=== PATIENT | female | born 1975 | race American Indian/Alaskan Native ===

== ENCOUNTER 2016-06-21 23:21 | Emergency (ER) | payer MEDICAID ==
[2016-06-21 23:41] VITALS: BMI 23.8
[2016-06-21] MEDS ORDERED: Sodium Chloride 0.9% 1,000 ML IV SCH (23:45)
--- NOTE | 2016-06-21 23:55 | ED PDOC ---
Arrival/HPI - General Chief Complaint: Abdominal Pain Time Seen by Provider: 06/21/16 23:51 Historian: Patient - History of Present Illness Narrative History of Present Illness (Text): 06/21/16 23:55 Radha Hernandez is a 41 year old female, whose past medical history includes ovarian cysts, who presents to the Emergency department complaining sharp lower abdominal pressure radiating to her back today. Patient also complaining of chest pain and constipation. Patient notes her last bowel movement earlier today was 1 hard, small piece. Patient states she took Pepto Bismol and laxatives but denies any relief. Patient denies any fever, chills, shortness of breath, nausea, vomiting, diarrhea, urinary symptoms, neck pain, headache, dizziness, or any other complaints. Time/Duration: Other (today) Symptom Onset: Gradual Symptom Course: Unchanged Quality: Pressure Activities at Onset: Rest, Light Context: Home Past Medical History - Provider Review Nursing Documentation Reviewed: Yes - Cardiac Hx Hypertension: Yes - Pulmonary Hx Respiratory Disorders: No - Neurological Hx Neurological Disorder: No - HEENT Hx HEENT Disorder: No - Renal Hx Renal Disorder: No - Endocrine/Metabolic Hx Endocrine Disorders: No - Hematological/Oncological Hx Anemia: Yes - Integumentary Hx Dermatological Disorder: No - Musculoskeletal/Rheumatological Hx Musculoskeletal Disorders: No - Gastrointestinal Hx Gastrointestinal Disorders: No - Genitourinary/Gynecological Hx Genitourinary Disorders: No - Psychiatric Hx Psychophysiologic Disorder: No Hx Substance Use: No - Surgical History Other/Comment: ECTOPIC PREG right - Anesthesia Hx Anesthesia: No - Suicidal Assessment Feels Threatened In Home Enviroment: No Family/Social History - Physician Review Nursing Documentation Reviewed: Yes Family/Social History: No Known Family HX Smoking Status: Never Smoked Hx Alcohol Use: Yes Hx Substance Use: No Allergies/Home Meds Allergies/Adverse Reactions: Allergies No Known Allergies Allergy (Verified 06/21/16 23:44) Review of Systems - Physician Review All systems were reviewed & negative as marked: Yes - Review of Systems Constitutional: Normal. absent: Fevers Eyes: Normal ENT: Normal Respiratory: Normal. absent: SOB, Cough Cardiovascular: Chest Pain Gastrointestinal: Abdominal Pain, Constipation. absent: Nausea, Vomiting Genitourinary Female: Normal. absent: Dysuria, Frequency, Hematuria, Urine Output Changes Musculoskeletal: Normal. absent: Back Pain Skin: Normal. absent: Rash Neurological: Normal. absent: Headache, Dizziness Endocrine: Normal Hemo/Lymphatic: Normal Psychiatric: Normal Physical Exam Vital Signs Reviewed: Yes Vital Signs Temp Pulse Resp BP Pulse Ox 06/22/16 04:31 88 16 123/68 99 06/22/16 03:59 97.8 F 65 17 110/61 98 06/21/16 23:51 98.4 F 89 17 116/71 100 Temperature: Afebrile Blood Pressure: Normal Pulse: Regular Respiratory Rate: Normal Appearance: Positive for: Well-Appearing, Non-Toxic, Comfortable Pain Distress: None Mental Status: Positive for: Alert and Oriented X 3 - Systems Exam Head: Present: Atraumatic, Normocephalic Pupils: Present: PERRL Extroacular Muscles: Present: EOMI Conjunctiva: Present: Normal Mouth: Present: Moist Mucous Membranes Neck: Present: Normal Range of Motion Respiratory/Chest: Present: Clear to Auscultation, Good Air Exchange. No: Respiratory Distress, Accessory Muscle Use Cardiovascular: Present: Regular Rate and Rhythm, Normal S1, S2. No: Murmurs Abdomen: Present: Tenderness (RLQ tenderness), Normal Bowel Sounds. No: Distention, Peritoneal Signs Back: Present: Normal Inspection Upper Extremity: Present: Normal Inspection. No: Cyanosis, Edema Lower Extremity: Present: Normal Inspection. No: Edema Neurological: Present: GCS=15, CN II-XII Intact, Speech Normal Skin: Present: Warm, Dry, Normal Color. No: Rashes Psychiatric: Present: Alert, Oriented x 3, Normal Insight, Normal Concentration Medical Decision Making ED Course and Treatment: 06/21/16 23:55 Impression: 41 year old female complaining of lower abdominal pressure today with chest pain and constipation. Plan: -- EKG -- Transvaginal US -- Labs, amylase, lipase, cardiac enzymes -- UA -- IV fluids -- Morphine -- Reassess and disposition Prior Visits: Notes and results from previous visits were reviewed. On 02/08/2016, pt was seen in the Emergency department for generalized weakness , nausea, and multiple episodes of bilious vomiting. Pt was d/c home. Progress Notes: Reviewed EKG, NSR at [address]-segment elevations or depressions, no T-wave inversions, normal intervals. 06/22/16 01:24 Reviewed sono, Transvaginal US shows: Right ovarian cysts for which followup is recommended. 06/22/16 03:51 Reviewed radiology, CT Abdomen and Pelvis shows: Right ovarian cyst better seen on ultrasound. 06/22/16 04:30 On re-evaluation, the patient feels better and is in no acute distress. I have discussed the results and plan with the patient, who expresses understanding. Patient in agreement with plan to discharged home. Patient is stable for discharge. Patient was instructed to follow up with physician/clinic in 1-2 days or return if symptoms worsen or new concerning symptoms arise. - Lab Interpretations Lab Results: 06/22/16 00:10 06/22/16 00:10 Lab Results 06/22/16 00:34: Urine HCG, Qual Negative 06/22/16 00:10: WBC 6.9 D, RBC 4.15, Hgb 11.5 L, Hct 34.8 L, MCV 83.9, MCH 27.7 , MCHC 33.0, RDW 14.1, Plt Count 232, MPV 9.9, Gran % 59.1, Lymph % (Auto) 30.1 , [place] % (Auto) 9.8 H, Eos % (Auto) 0.7 L, Baso % (Auto) 0.3, Gran # 4.08, Lymph # 2.1, [place] # 0.7 H, Eos # 0.1, Baso # 0.02, PT 11.0, INR 1.02, APTT 25.7 , Sodium 136, Potassium 3.8, Chloride 98, Carbon Dioxide 31, Anion Gap 11, BUN 15, Creatinine 0.9, Est GFR ( Amer) > 60, Est GFR (Non-Af Amer) > 60, Random Glucose 97, Calcium 9.2, Total Bilirubin 0.3, AST 23, ALT 15, Alkaline Phosphatase 50, Lactate Dehydrogenase 448, Total Creatine Kinase 106, Troponin I < 0.01, Total Protein 7.6, Albumin 3.8, Globulin 3.8, Albumin/Globulin Ratio 1.0 L, Amylase 90, Lipase 126, Urine Color Yellow, Urine Appearance Clear, Urine pH 6.5, Ur Specific [place] 1.010, Urine Protein Negative, Urine Glucose ( UA) Negative, Urine Ketones Negative, Urine Blood Negative, Urine Nitrate Negative, Urine Bilirubin Negative, Urine Urobilinogen 0.2, Ur Leukocyte Esterase Negative I have reviewed the lab results: Yes - RAD Interpretation Narrative RAD Interpretations (Text): Transvaginal US shows: The uterus is normal and measures 7 x 4 x 5 cm. There is a 2 cm posterior uterine fibroid. The endometrium measures 4 mm. The left ovary is normal. There are 2 right ovarian cysts each measuring approximately 1.5 cm in diameter and both with suggestion of a few small internal septations. Color flow and doppler vascular waveforms were demonstrated to both ovaries. There is no significant free fluid. IMPRESSION: Right ovarian cysts for which followup is recommended. CT Abdomen and Pelvis shows: There is bibasilar atelectasis. The liver, spleen, gallbladder and pancreas appear grossly normal on this non- contrast study. No perinephric stranding. No hydronephrosis. No obstructing calculi. The bowel appears grossly normal. A normal appendix is identified axial images 113 through 123 coronal images 38 through 43. There is a small amount of fluid in the anterior right pelvis versus representing unopacified bowel. Right ovarian cyst better seen on ultrasound. The uterus appears grossly normal. Pelvic phleboliths. IMPRESSION: Right ovarian cyst better seen on ultrasound. Radiology Orders: 06/21/16 23:56 TRANSVAGINAL [US] Stat 06/22/16 02:32 ABD & PELVIS W/O PO OR IV CONT [CT] Stat Noc Analyst: Radiologist - EKG Interpretation EKG Interpretation (Text): EKG: Ordered, reviewed, and independently interpreted the EKG. Rate : 73 BPM Rhythm : NSR Interpretation : No ST-segment elevations or depressions, no T-wave inversions, normal intervals. Interpreted by ED Physician: Yes Type: 12 lead EKG - Medication Orders Current Medication Orders: Sodium Chloride (Sodium Chloride 0.9%) 1,000 mls @ 80 mls/hr IV .[id number] [facility] Last Admin: 06/22/16 00:17 Dose: 80 MLS/HR eMAR Start Stop Document 06/22/16 00:17 EKEOO (Rec: 06/22/16 00:18 EKEOO [id number] ATTEND) Intravenous Solution Start Date 06/22/16 Start Time 00:18 Discontinued Medications Hydromorphone HCl (Dilaudid) 1 mg IVP STAT STA Stop: 06/22/16 03:29 Last Admin: 06/22/16 03:44 Dose: 1 MG IVP Administration Document 06/22/16 03:44 EKEOO (Rec: 06/22/16 03:44 EKEOO [id number]) Charges for Administration # of IVP Administrations 1 Morphine Sulfate (Morphine) 2 mg IVP STAT STA Stop: 06/21/16 23:58 Last Admin: 06/22/16 00:18 Dose: 2 MG MAR Pain Assessment Document 06/22/16 00:18 EKEOO (Rec: 06/22/16 00:18 EKEOO [id number]) Pain Reassessment Is this a pain reassessment? No Sleep Is patient sleeping during reassessment? No Presence of Pain Presence of Pain Yes IVP Administration Document 06/22/16 00:18 EKEOO (Rec: 06/22/16 00:18 EKEOO [id number] ATTEND) Charges for Administration # of IVP Administrations 1 - Scribe Statement The provider has reviewed the documentation as recorded by the Scribe Radha Chavez Provider Attestation: All medical record entries made by the Scribe were at my direction and personally dictated by me. I have reviewed the chart and agree that the record accurately reflects my personal performance of the history, physical exam, medical decision making, and the department course for this patient. I have also personally directed, reviewed, and agree with the discharge instructions and disposition. Disposition/Present on Arrival - Present on Arrival History of DVT/PE: No History of Uncontrolled Diabetes: No Urinary Catheter: No History of Decub. Ulcer: No History Surgical Site Infection Following: None - Disposition Diagnosis: Abdominal pain Disposition: HOME/ ROUTINE Patient Problems: Current Active Problems Problem Status Diagnosed Abdominal pain Acute Discharge Instructions (ExitCare): Acute Abdominal Pain (ED) Additional Instructions: follow up with your ob/gyn Prescriptions: Ibuprofen/Oxycodone HCl [Oxycodone-Ibuprofen 5-400 Tab] 1 each PO QID #10 tablet Forms: WORK NOTE
[2016-06-21] MEDS ORDERED: Morphine 2 mg/ml ISec IVP STA (23:57)
[2016-06-22 00:23] LABS: ADD MANUAL DIFF? NO
[2016-06-22 00:29] LABS: PH,URINE 6.5 (4.7-8.0); URINE BILIRUBIN NEGATIVE (NEGATIVE); URINE BLOOD NEGATIVE (NEGATIVE); URINE GLUCOSE (UA) NEGATIVE (NEGATIVE); URINE KETONE NEGATIVE (NEGATIVE); URINE LEUKOCYTE ESTERASE NEGATIVE Leu/uL (NEGATIVE); URINE PROTEIN NEGATIVE mg/dL (<30 mg/dL); URINE UROBILINOGEN 0.2 E.U./dL (<1 E.U./dL)
[2016-06-22 00:30] LABS: BASO # 0.02 K/mm3 (0.0-2.0); BASO % 0.3 % (0.0-3.0); EOS # 0.1 (0.0-0.7); EOS % 0.7 % (1.5-5.0); GRAN # 4.08 (1.4-6.5); GRAN % 59.1 % (50.0-68.0); HEMATOCRIT 34.8 % (36.0-48.0); LYMPH # 2.1 (1.2-3.4); LYMPH % 30.1 % (22.0-35.0); MEAN CELL VOLUME 83.9 fL (80.0-105.0); MEAN CORPUSCULAR HEMOGLOBIN 27.7 pg (25.0-35.0); MEAN PLATELET VOLUME 9.9 fl (7.0-11.0); MONO # 0.7 (0.1-0.6); MONO % 9.8 % (1.0-6.0); PLATELET COUNT 232 10^3/uL (120.0-450.0); RED CELL DISTRIBUTION WIDTH 14.1 % (11.5-14.5); WHITE BLOOD COUNT 6.9 10^3/ul (4.5-11.0)
[2016-06-22 00:35] LABS: URINE APPEARANCE CLEAR (CLEAR); URINE COLOR YELLOW (YELLOW)
[2016-06-22 00:41] LABS: INR 1.02 (0.93-1.08); PARTIAL THROMBOPLASTIN TIME 25.7 Seconds (23.7-30.8)
[2016-06-22 00:43] LABS: ALKALINE PHOSPHATASE 50 U/L (38-133); ALT/SGPT 15 U/L (7-56); AMYLASE 90 U/L (35-125); AST/SGOT 23 U/L (15-39); BILIRUBIN,TOTAL 0.3 mg/dL (0.2-1.3); BLOOD UREA NITROGEN 15 mg/dL (7-21); CALCIUM 9.2 mg/dL (8.4-10.5); CARBON DIOXIDE 31 mmol/L (21-33); CHLORIDE 98 mmol/L (98-107); GFR AFRICAN-AMERICAN > 60; GLUCOSE,RANDOM 97 mg/dL (70-110); LIPASE 126 U/L (23-300); POTASSIUM 3.8 mmol/L (3.6-5.0); SODIUM 136 mmol/L (132-148); TOTAL PROTEIN 7.6 g/dL (5.8-8.3)
[2016-06-22 01:02] LABS: TROPONIN I < 0.01 ng/mL
--- NOTE | 2016-06-22 01:11 | US ---
EXAM: US Pelvis, Transvaginal. CLINICAL HISTORY: 41 years old, female; Pain; Pelvic pain; Additional info: Rlq pain TECHNIQUE: Real-time transvaginal pelvic ultrasound (complete) with image documentation. Transvaginal imaging was used for better evaluation of the endometrium and adnexa. EXAM DATE/TIME: 06/21/2016 11:56 PM COMPARISON: No relevant prior studies available. FINDINGS: The uterus is normal and measures 7 x 4 x 5 cm. There is a 2 cm posterior uterine fibroid. The endometrium measures 4 mm. The left ovary is normal. There are 2 right ovarian cysts each measuring approximately 1.5 cm in diameter and both with suggestion of a few small internal septations. Color flow and doppler vascular waveforms were demonstrated to both ovaries. There is no significant free fluid. IMPRESSION: Right ovarian cysts for which followup is recommended.
[2016-06-22] MEDS ORDERED: HYDROmorphone 1 mg/ml ISec IVP STA (03:28)
--- NOTE | 2016-06-22 03:50 | CT ---
EXAM: CT Abdomen and Pelvis Without Intravenous Contrast. CLINICAL HISTORY: 41 years old, female; Pain; Abdominal pain; Generalized; Additional info: Abd pain TECHNIQUE: Axial computed tomography images of the abdomen and pelvis without intravenous contrast. This CT exam was performed using one or more of the following dose reduction techniques: automated exposure control, adjustment of the mA and/or kV according to patient size, and/or use of iterative reconstruction technique. Coronal and sagittal reformatted images were created and reviewed. EXAM DATE/TIME: 06/22/2016 2:32 AM COMPARISON: US - TRANSVAGINAL 06/22/2016 12:36:51 AM FINDINGS: There is bibasilar atelectasis. The liver, spleen, gallbladder and pancreas appear grossly normal on this non-contrast study. No perinephric stranding. No hydronephrosis. No obstructing calculi. The bowel appears grossly normal. A normal appendix is identified axial images 113 through 123 coronal images 38 through 43. There is a small amount of fluid in the anterior right pelvis versus representing unopacified bowel. Right ovarian cyst better seen on ultrasound. The uterus appears grossly normal. Pelvic phleboliths. IMPRESSION: Right ovarian cyst better seen on ultrasound.
[2016-06-22 04:01] VITALS: TEMP 97.8
[2016-06-22 04:32] VITALS: BP 123/68; PULSE 88; RESP 16; O2SAT 99
--- NOTE | 2016-06-22 10:06 | CARD ---
APPROVED REPORT EKG Measurement Heart [id number] <Conclusion> Normal sinus rhythm Normal ECG No change
== END 2016-06-22 04:30 | disposition home or self-care (01) ==
LOC: ED 23:21
DX: R10.9 Unspecified abdominal pain (principal); I10 Essential (primary) hypertension
CPT/HCPCS: 74176; 76830; 80053; 81003; 82150; 82550; 83615; 83690; 84484; 84703; 85025; 85610; 85730; 93005; 96374; 96375; 99283; J1170; J2270; J7040

== ENCOUNTER 2016-06-22 19:13 | Observation (INO) | payer MEDICAID ==
[2016-06-22 19:14] VITALS: BMI 23.8
[2016-06-22] MEDS ORDERED: Sodium Chloride 0.9% 1,000 ML IV STA (20:09)
[2016-06-22] MEDS ORDERED: Morphine 4 mg/ml ISec IVP STA ×2 (20:09→22:35)
--- NOTE | 2016-06-22 20:15 | ED PDOC ---
Arrival/HPI - General Chief Complaint: Abdominal Pain Time Seen by Provider: 06/22/16 19:46 Historian: Patient - History of Present Illness Narrative History of Present Illness (Text): 06/22/16 20:15 A 41 year old female presents to the emergency department complaining of lower abdominal pain for the past few days. Patient notes radiating pain to her back, right side worse than left. Patient reports she was seen in the emergency room last night for same complaint. Patient had a CT and US, which showed ovarian cysts. Patient was discharged home with Motrin and Oxycodone. Patient states she was unable to her the prescriptions filled because her pharmacy did not have the medication. Patient states her pain has worsened since causing her to come in for further evaluation. Patient notes 1 episode of non-bilious non- bloody vomiting this morning and states her last bowel movement was 2 days ago. Patient denies any fever, urinary symptoms, vaginal bleeding, chest pain , shortness of breath or any other complaints. PMD: Dr. Hall Time/Duration: Other (few days) Symptom Course: Worsening Quality: Other Context: Other Past Medical History - Provider Review Nursing Documentation Reviewed: Yes - Infectious Disease Hx of Infectious Diseases: None - Reproductive Menopause: No - Cardiac Hx Hypertension: Yes - Pulmonary Hx Respiratory Disorders: No - Neurological Hx Neurological Disorder: No - HEENT Hx HEENT Disorder: No - Renal Hx Renal Disorder: No - Endocrine/Metabolic Hx Endocrine Disorders: No - Hematological/Oncological Hx Anemia: Yes - Integumentary Hx Dermatological Disorder: No - Musculoskeletal/Rheumatological Hx Musculoskeletal Disorders: No - Gastrointestinal Hx Gastrointestinal Disorders: No - Genitourinary/Gynecological Hx Genitourinary Disorders: No - Psychiatric Hx Psychophysiologic Disorder: No Hx Substance Use: No - Surgical History Other/Comment: ECTOPIC PREG right - Anesthesia Hx Anesthesia: No - Suicidal Assessment Feels Threatened In Home Enviroment: No Family/Social History - Physician Review Nursing Documentation Reviewed: Yes Family/Social History: No Known Family HX Smoking Status: Never Smoked Hx Alcohol Use: Yes Hx Substance Use: No Allergies/Home Meds Allergies/Adverse Reactions: Allergies No Known Allergies Allergy (Verified 06/22/16 19:38) Review of Systems - Physician Review All systems were reviewed & negative as marked: Yes - Review of Systems Constitutional: absent: Fevers Respiratory: absent: SOB Cardiovascular: absent: Chest Pain Gastrointestinal: Abdominal Pain (Lower abdominal pain radiating to back), Constipation, Vomiting Genitourinary Female: absent: Dysuria, Frequency, Hematuria, Urine Output Changes, Vaginal Bleeding Physical Exam Vital Signs Reviewed: Yes Vital Signs Temp Pulse Resp BP Pulse Ox 06/23/16 03:27 97.7 F 65 17 112/61 99 06/23/16 02:55 97.8 F 73 17 109/71 99 06/22/16 19:34 98 F 90 18 111/74 96 Temperature: Afebrile Blood Pressure: Normal Pulse: Regular Respiratory Rate: Normal Appearance: Positive for: Well-Appearing, Non-Toxic, Comfortable Pain Distress: None Mental Status: Positive for: Alert and Oriented X 3 - Systems Exam Head: Present: Atraumatic, Normocephalic Pupils: Present: PERRL Extroacular Muscles: Present: EOMI Conjunctiva: Present: Normal Mouth: Present: Moist Mucous Membranes Neck: Present: Normal Range of Motion Respiratory/Chest: Present: Clear to Auscultation, Good Air Exchange. No: Respiratory Distress, Accessory Muscle Use Cardiovascular: Present: Regular Rate and Rhythm, Normal S1, S2. No: Murmurs Abdomen: Present: Tenderness (Lower abdominal tendenress), Normal Bowel Sounds, Guarding (Mild guarding). No: Distention, Peritoneal Signs, Rebound Back: Present: Normal Inspection Upper Extremity: Present: Normal Inspection. No: Cyanosis, Edema Lower Extremity: Present: Normal Inspection. No: Edema Neurological: Present: GCS=15, CN II-XII Intact, Speech Normal Skin: Present: Warm, Dry, Normal Color. No: Rashes Psychiatric: Present: Alert, Oriented x 3, Normal Insight, Normal Concentration Medical Decision Making ED Course and Treatment: 06/22/16 20:15 Impression: A 41 year old female with worsening lower abdominal pain radiating to back. Patient notes her last bowel movement was 2 days ago. Differential Diagnosis included but are not limited to: Lower abdominal pain due to ovarian cyst and constipation Plan: -- Labs -- Morphine, IV fluids and Toradol -- Reassess and disposition - Lab Interpretations I have reviewed the lab results: Yes - RAD Interpretation Narrative RAD Interpretations (Text): EXAM: CT Abdomen and Pelvis With Intravenous Contrast. FINDINGS: Lower thorax: Mild patchy groundglass opacities within lower lobes. ABDOMEN: Liver: Unremarkable. No mass. Gallbladder and bile ducts: No calcified stones. No ductal dilation. Pancreas: No ductal dilation. No mass. Spleen: No splenomegaly. Adrenals: No mass. Kidneys and ureters: Too small to characterize lesion within LEFT kidney. No hydronephrosis. Stomach and bowel: No definite mural thickening. No obstruction. Appendix: Normal caliber. No inflammation. PELVIS: Bladder: Unremarkable. Reproductive: 2.0 x 1.4 x 1.4 cm peripherally enhancing hypodensity with crenulated margins within RIGHT ovary. 1.5 x 1.5 x 1.6 cm peripherally enhancing hypodensity with crenulated margins within RIGHT ovary. ABDOMEN and PELVIS: Intraperitoneal space: Trace free fluid within pelvis. No free air. Bones/joints: No acute fracture. Soft tissues: Unremarkable. Vasculature: Unremarkable. No abdominal aortic aneurysm. Lymph nodes: No pathologically enlarged lymph nodes. IMPRESSION: 1. Involuting or ruptured RIGHT ovarian cysts. 2. Groundglass opacities, nonspecific. Clinical correlation is needed. 3. Incidental/non-acute findings are described above. It Software Developer: Radiologist - Medication Orders Current Medication Orders: Discontinued Medications Sodium Chloride (Sodium Chloride 0.9%) 1,000 mls @ 1,000 mls/hr IV .Q1H STA Stop: 06/22/16 21:08 Last Admin: 06/22/16 20:31 Dose: 1,000 MLS/HR eMAR Start Stop Document 06/22/16 20:31 RD (Rec: 06/22/16 20:31 [email or web address] Intravenous Solution Start Date 06/22/16 Start Time 20:31 End Date 06/22/16 End time 21:31 Total Infusion Time 60 Ketorolac Tromethamine (Toradol) 30 mg IVP STAT STA Stop: 06/22/16 20:10 Last Admin: 06/22/16 20:31 Dose: 30 MG IVP Administration Document 06/22/16 20:31 RD (Rec: 06/22/16 20:31 RD [email or web address]) Charges for Administration # of IVP Administrations 1 Magnesium Citrate (Citrate Of Mag) 300 ml PO ONCE ONE Stop: 06/22/16 21:32 Last Admin: 06/22/16 21:48 Dose: 300 ML Morphine Sulfate (Morphine) 4 mg IVP STAT STA Stop: 06/22/16 20:10 Last Admin: 06/22/16 20:33 Dose: Not Given Non-Admin Reason: Patient Refused Morphine Sulfate (Morphine) 4 mg IVP STAT STA Stop: 06/22/16 22:36 Last Admin: 06/22/16 22:50 Dose: 4 MG MAR Pain Assessment Document 06/22/16 22:50 JMR (Rec: 06/23/16 01:28 [facility]) Pain Reassessment Is this a pain reassessment? Yes Sleep Is patient sleeping during reassessment? No Presence of Pain Presence of Pain Yes Pain Scale Used Pain Scale Used Numeric Location Pain Location Body Site Abdomen Description Description Sharp Intensity of Pain at present 9 Acceptable Level of Pain 0 IVP Administration Document 06/22/16 22:50 JMR (Rec: 06/23/16 01:28 [facility]) Charges for Administration # of IVP Administrations 1 Morphine Sulfate (Morphine) 4 mg IVP STAT STA Stop: 06/23/16 01:25 Last Admin: 06/23/16 01:33 Dose: 4 MG MAR Pain Assessment Document 06/23/16 01:33 RD (Rec: 06/23/16 01:34 RD [id number]) Pain Reassessment Is this a pain reassessment? No Sleep Is patient sleeping during reassessment? No Presence of Pain Presence of Pain Yes IVP Administration Document 06/23/16 01:33 RD (Rec: 06/23/16 01:34 RD [id number]) Charges for Administration # of IVP Administrations 1 ED OBSERVATION Date of observation admission: 06/22/16 Time of observation admission: 20:09 - Observation admission statement Patient is being placed in observation because:: Abdominal pain - Goals of Observation Goals of observation are:: Monitor and treat symptoms - Progress Note Progress Note: 06/22/16 20:09 Patient with abdominal pain. Will order labs, medication and re-evaluate after treatment. 06/22/16 21:32 Patient no longer has pain but feels constipated. Will give Magnesium Citrate and reevaluate. 06/22/16 22:34 Patient continues to have abdominal pain. Morphine IV ordered and she agreed to take it this time because initially she refused it. Abd soft and diffusely tender with guarding, more so lower. No rebound. Previous CT was without PO and IV contrast. Will repeat imaging with PO and IV contrast. 06/23/16 03:19 CT abdomen pelvis reviewed: IMPRESSION: 1. Involuting or ruptured RIGHT ovarian cysts. 2. Groundglass opacities, nonspecific. Clinical correlation is needed. On reevaluation, patient states that she feels much better post treatment and wants to be discharged home. CT scan reviewed which show possible involuting or ruptured right ovarian cyst. Patient is stable for discharge. Advised to present back to ed if symptoms worsen and follow up with PMD within few days. - Scribe Statement The provider has reviewed the documentation as recorded by the Ollieibdari Espinosa Provider Scribe Attestation: All medical record entries made by the Scribe were at my direction and personally dictated by me. I have reviewed the chart and agree that the record accurately reflects my personal performance of the history, physical exam, medical decision making, and the department course for this patient. I have also personally directed, reviewed, and agree with the discharge instructions and disposition. Disposition/Present on Arrival - Present on Arrival Any Indicators Present on Arrival: No History of DVT/PE: No History of Uncontrolled Diabetes: No Urinary Catheter: No History of Decub. Ulcer: No History Surgical Site Infection Following: None - Disposition Have Diagnosis and Disposition been Completed?: Yes Diagnosis: Ruptured ovarian cyst, Abdominal pain Disposition: HOME/ ROUTINE Disposition Time: 03:30 Patient Plan: Discharge Patient Problems: Current Active Problems Problem Status Diagnosed Abdominal pain Acute Ruptured ovarian cyst Acute Condition: IMPROVED
[2016-06-22 20:37] LABS: ADD MANUAL DIFF? NO
[2016-06-22 20:39] LABS: BASO # 0.01 K/mm3 (0.0-2.0); BASO % 0.2 % (0.0-3.0); EOS % 0.6 % (1.5-5.0); GRAN # 3.64 (1.4-6.5); GRAN % 56.7 % (50.0-68.0); LYMPH # 2.2 (1.2-3.4); LYMPH % 33.5 % (22.0-35.0); MEAN CELL VOLUME 84.2 fL (80.0-105.0); MEAN CORPUSCULAR HEMOGLOBIN 27.7 pg (25.0-35.0); MEAN CORPUSCULAR HGB CONC 32.9 g/dl (31.0-37.0); MONO # 0.6 (0.1-0.6); PLATELET COUNT 226 10^3/uL (120.0-450.0); WHITE BLOOD COUNT 6.4 10^3/ul (4.5-11.0)
[2016-06-22 21:24] LABS: ALB/GLOB RATIO 1.1 (1.1-1.8); ALKALINE PHOSPHATASE 43 U/L (38-133); ALT/SGPT 15 U/L (7-56); AST/SGOT 20 U/L (15-39); BILIRUBIN,TOTAL 0.2 mg/dL (0.2-1.3); BLOOD UREA NITROGEN 16 mg/dL (7-21); CALCIUM 8.6 mg/dL (8.4-10.5); CARBON DIOXIDE 29 mmol/L (21-33); CHLORIDE 102 mmol/L (98-107); GFR AFRICAN-AMERICAN > 60; GLUCOSE,RANDOM 92 mg/dL (70-110); POTASSIUM 3.6 mmol/L (3.6-5.0); SODIUM 137 mmol/L (132-148); TOTAL PROTEIN 6.7 g/dL (5.8-8.3)
[2016-06-22] MEDS ORDERED: Magnesium Citrate Oral SOL (300 ml) PO ONE (21:31)
[2016-06-22] MEDS ORDERED: Iohexol 240 (50 ml) ONE (22:43)
[2016-06-23] MEDS ORDERED: Morphine 4 mg/ml ISec IVP STA (01:24)
[2016-06-23] MEDS ORDERED: Iohexol 350 MG/100 ML VIAL ONE (02:07)
[2016-06-23 02:56] VITALS: RESP 17; O2SAT 99
--- NOTE | 2016-06-23 02:57 | CT ---
EXAM: CT Abdomen and Pelvis With Intravenous Contrast. CLINICAL HISTORY: 41 years old, female; Pain; Abdominal pain; Generalized; Prior surgery; Surgery date: 6+ months; Additional info: Abd pain R/O appy R/O obstruction TECHNIQUE: Axial computed tomography images of the abdomen and pelvis with intravenous contrast. This CT exam was performed using one or more of the following dose reduction techniques: automated exposure control, adjustment of the mA and/or kV according to patient size, and/or use of iterative reconstruction technique. Coronal and sagittal reformatted images were created and reviewed. CONTRAST: 96 mL of OMNI 350 administered intravenously. COMPARISON: CT - ABD PELVIS W/O PO OR IV CONT 06/22/2016 3:09:54 AM FINDINGS: Lower thorax: Mild patchy groundglass opacities within lower lobes. ABDOMEN: Liver: Unremarkable. No mass. Gallbladder and bile ducts: No calcified stones. No ductal dilation. Pancreas: No ductal dilation. No mass. Spleen: No splenomegaly. Adrenals: No mass. Kidneys and ureters: Too small to characterize lesion within LEFT kidney. No hydronephrosis. Stomach and bowel: No definite mural thickening. No obstruction. Appendix: Normal caliber. No inflammation. PELVIS: Bladder: Unremarkable. Reproductive: 2.0 x 1.4 x 1.4 cm peripherally enhancing hypodensity with crenulated margins within RIGHT ovary. 1.5 x 1.5 x 1.6 cm peripherally enhancing hypodensity with crenulated margins within RIGHT ovary. ABDOMEN and PELVIS: Intraperitoneal space: Trace free fluid within pelvis. No free air. Bones/joints: No acute fracture. Soft tissues: Unremarkable. Vasculature: Unremarkable. No abdominal aortic aneurysm. Lymph nodes: No pathologically enlarged lymph nodes. IMPRESSION: 1. Involuting or ruptured RIGHT ovarian cysts. 2. Groundglass opacities, nonspecific. Clinical correlation is needed. 3. Incidental/non-acute findings are described above.
[2016-06-23 03:27] VITALS: BP 112/61; PULSE 65; TEMP 97.7
== END 2016-06-23 03:17 | disposition home or self-care (01) ==
LOC: ED 19:13 → EROBSV 20:09 → OBSVTOIN 22:15 → INTOOBSV 22:15 → EROBSV 23:09 → ERH 23:09
PROVIDERS: ADMIT Hospitalist; ATTEND Hospitalist
DX: R10.30 Lower abdominal pain, unspecified (principal); N83.201 Unspecified ovarian cyst, right side; I10 Essential (primary) hypertension
CPT/HCPCS: 74177; 80053; 85025; 96361; 96374; 96375; 96376; 99284; G0378; J1885; J2270; J7040; Q9966; Q9967

== ENCOUNTER 2016-09-29 01:18 | Emergency (ER) | payer MEDICAID ==
[2016-09-29 01:18] VITALS: BMI 23.8
[2016-09-29] MEDS ORDERED: Sodium Chloride 0.9% 1,000 ML IV STA (01:34)
[2016-09-29 01:43] VITALS: TEMP 98.2
--- NOTE | 2016-09-29 01:44 | ED PDOC ---
Arrival/HPI - General Chief Complaint: Abdominal Pain Time Seen by Provider: 09/29/16 01:27 Historian: Patient - History of Present Illness Narrative History of Present Illness (Text): 09/29/16 01:27 Radha Hernandez is a 41 year old female who presents to the emergency department complaining of epigastric abdominal pain tonight. Patient states that she took [id number] Motrin tablets, which she took for a headache, all at once at 22:00. States this is not the worst MOSS of her life, similar to previous. Patient says that she took the medication because she was sad, depressed, and wanted to go to sleep. Denies SI/HI. Patient denies any other complaints at this time. PMD: Dr. Hall Time/Duration: 1-3 hours Symptom Onset: Gradual Symptom Course: Unchanged Severity Level: Mild Activities at Onset: Rest Context: Home Past Medical History - Provider Review Nursing Documentation Reviewed: Yes - Infectious Disease Hx of Infectious Diseases: None - Cardiac Hx Hypertension: Yes - Pulmonary Hx Respiratory Disorders: No - Neurological Hx Neurological Disorder: No - HEENT Hx HEENT Disorder: No - Renal Hx Renal Disorder: No - Endocrine/Metabolic Hx Endocrine Disorders: No - Hematological/Oncological Hx Anemia: Yes - Integumentary Hx Dermatological Disorder: No - Musculoskeletal/Rheumatological Hx Musculoskeletal Disorders: No - Gastrointestinal Hx Gastrointestinal Disorders: No - Genitourinary/Gynecological Hx Genitourinary Disorders: No - Psychiatric Hx Psychophysiologic Disorder: No Hx Substance Use: No - Surgical History Other/Comment: ECTOPIC PREG right - Anesthesia Hx Anesthesia: No - Suicidal Assessment Feels Threatened In Home Enviroment: No Family/Social History - Physician Review Nursing Documentation Reviewed: Yes Family/Social History: No Known Family HX Smoking Status: Never Smoked Hx Alcohol Use: Yes Frequency of alcohol use: Socially Hx Substance Use: No Allergies/Home Meds Allergies/Adverse Reactions: Allergies No Known Allergies Allergy (Verified 06/22/16 19:38) Physical Exam - Physical Exam Narrative Physical Exam (Text): - Review of Systems Constitutional: Headache. absent: Fatigue, Weight Change, Fevers Eyes: Normal ENT: Normal Respiratory: Normal absent: SOB, Cough, Sputum Cardiovascular: Normal absent: Chest pain, Palpitations, Syncope Gastrointestinal: Epigastric abdominal pain. absent: Diarrhea, Nausea, Vomiting Genitourinary: Normal. absent: Dysuria, Frequency, Hematuria Musculoskeletal: Normal. absent: Arthralgias, Back Pain, Neck Pain Skin: Normal Neurological: Normal absent: Focal Weakness Endocrine: Normal Hemo/Lymphatic: Normal Psychiatric: Normal. No SI/HI. - Physical exam Patient appears age appropriate, speaking full sentences without difficulty. - Systems Exam Head: Present: Atraumatic, Normocephalic Pupils: Present: PERRL Extraocular Muscles: Present: EOMI Conjunctiva: Present: Normal Mouth: Present: Moist Mucous Membranes Neck: Present: Normal Range of Motion. No: MIDLINE TENDERNESS, Paraspinal Tenderness Respiratory/Chest: Present: Clear to Auscultation, Good Air Exchange. No: Respiratory Distress, Accessory Muscle Use, Tachypneic Cardiovascular: Present: Regular Rate and Rhythm, Normal S1, S2, Peripheral Pulses Present. No: Murmurs Abdomen: Present: Normal Bowel Sounds, No: Tenderness, Peritoneal Signs, Rebound, Guarding, Distention Back: Present: Normal Inspection. No: Midline Tenderness, Paraspinal Tenderness Upper Extremity: Present: Normal Inspection. No: Cyanosis, Edema Lower Extremity: Present: Normal Inspection. No: Edema Neurological: Present: GCS=15, Speech Normal, cranial nerves II through XII fully intact with no cerebellar abnormality, neuro-sensory fully intact. No focal neurological deficits. Skin: Present: Warm, Dry, Normal Color. No: Rashes Lymphatic: Present: OX3, NI, NC Psychiatric: Present: Alert, Oriented x 3, Normal Insight, Normal Concentration Vital Signs Reviewed: Yes Vital Signs Temp Pulse Resp BP Pulse Ox 09/29/16 04:25 64 18 141/66 98 09/29/16 01:41 98.2 F 64 18 143/92 H 99 09/29/16 01:34 98.0 F 64 16 143/92 H 99 Temperature: Afebrile Blood Pressure: Hypertensive Pulse: Regular Respiratory Rate: Normal Appearance: Positive for: Well-Appearing, Non-Toxic, Comfortable Pain Distress: None Mental Status: Positive for: Alert and Oriented X 3 Medical Decision Making ED Course and Treatment: 09/29/16 01:27 Impression: 41 year old female complaining of a headache for 2 days and a epigastric abdominal pain tonight after taking [id number] motrin tablets 3.5 hours ago. Non- enteric coated. No SI/HI. Plan: -- EKG -- Chest X-ray -- Urinalysis -- Labs -- Protonix and IV Fluids -- Reassess and disposition Prior Visits: Notes and results from previous visits were reviewed. Patient last seen in ED on 06/22/16 for lower abdominal pain for a few days. Patient was discharged home. Progress Notes: EKG shows Sinus Bradycardia at [address]-segment elevations, normal intervals. with no prior for comparison. Interpreted by me. 09/29/16 05:41 patient seen by PES, pt refusing to sign into . [facility] screeners. 09/29/16 07:[address] Diaz in stable condition, pending [facility] eval - Lab Interpretations Lab Results: 09/29/16 03:35 09/29/16 03:35 Lab Results 09/29/16 03:35: Alcohol, Quantitative < 10 09/29/16 03:35: Salicylates < 1 L, Acetaminophen < 10.0 L 09/29/16 03:35: Sodium 141, Potassium 3.6, Chloride 104, Carbon Dioxide 26, Anion Gap 15, BUN 14, Creatinine 0.9, Est GFR ( Amer) > 60, Est GFR (Non- Af Amer) > 60, Random Glucose 97, Calcium 9.6, Total Bilirubin 0.8, AST 30, ALT 31, Alkaline Phosphatase 64, Total Creatine Kinase 133, Total Protein 8.6 H, Albumin 4.5, Globulin 4.1, Albumin/Globulin Ratio 1.1 09/29/16 03:35: WBC 8.5 D, RBC 4.48, Hgb 12.6, Hct 38.0, MCV 84.8, MCH 28.1, MCHC 33.2, RDW 13.7, Plt Count 266, MPV 9.9, Gran % 59.3, Lymph % (Auto) 33.5, [place] % (Auto) 6.4 H, Eos % (Auto) 0.4 L, Baso % (Auto) 0.4, Gran # 5.03, Lymph # 2.8, [place] # 0.5, Eos # 0.0, Baso # 0.03 09/29/16 01:37: Urine Opiates Screen Negative, Urine Methadone Screen Negative, Ur Barbiturates Screen Negative, Ur Phencyclidine Scrn Negative, Ur Amphetamines Screen Negative, U Benzodiazepines Scrn Negative, U Oth Cocaine Metabols Negative, U Cannabinoids Screen Positive H 09/29/16 01:37: Urine Color Yellow, Urine Appearance Slight-cloudy, Urine pH 6.0 , Ur Specific [place] >= 1.030, Urine Protein Trace H, Urine Glucose (UA) Negative, Urine Ketones Trace H, Urine Blood Small H, Urine Nitrate Negative, Urine Bilirubin Negative, Urine Urobilinogen 0.2, Ur Leukocyte Esterase Negative , Urine RBC 2 - 5, Urine WBC 0 - 2, Ur Epithelial Cells 0 - 2, Urine Bacteria Mod I have reviewed the lab results: Yes - RAD Interpretation Radiology Orders: 09/29/16 01:33 CHEST PORTABLE [RAD] Stat - Medication Orders Current Medication Orders: Discontinued Medications Sodium Chloride (Sodium Chloride 0.9%) 1,000 mls @ 1,000 mls/hr IV .Q1H STA Stop: 09/29/16 02:33 Last Admin: 09/29/16 03:45 Dose: 1,000 mls/hr Pantoprazole Sodium (Protonix Inj) 40 mg IVP STAT STA Stop: 09/29/16 01:35 Last Admin: 09/29/16 03:45 Dose: 40 mg - Scribe Statement The provider has reviewed the documentation as recorded by the Ellie Garcia Provider Scribe Attestation: All medical record entries made by the Ollieibdari were at my direction and personally dictated by me. I have reviewed the chart and agree that the record accurately reflects my personal performance of the history, physical exam, medical decision making, and the department course for this patient. I have also personally directed, reviewed, and agree with the discharge instructions and disposition. Disposition/Present on Arrival - Present on Arrival Any Indicators Present on Arrival: No History of DVT/PE: No History of Uncontrolled Diabetes: No Urinary Catheter: No History of Decub. Ulcer: No History Surgical Site Infection Following: None - Disposition Have Diagnosis and Disposition been Completed?: Yes Diagnosis: Medication overdose Disposition: HOSPITALIZED Disposition Time: 07:05 Patient Plan: Admission Patient Problems: Current Active Problems Problem Status Onset Medication overdose Acute Condition: STABLE
[2016-09-29 01:58] LABS: URINE BILIRUBIN NEGATIVE (NEGATIVE); URINE BLOOD SMALL (NEGATIVE); URINE GLUCOSE (UA) NEGATIVE (NEGATIVE); URINE KETONE TRACE mg/dL (NEGATIVE); URINE LEUKOCYTE ESTERASE NEGATIVE Leu/uL (NEGATIVE); URINE PROTEIN TRACE mg/dL (<30 mg/dL); URINE UROBILINOGEN 0.2 E.U./dL (<1 E.U./dL)
[2016-09-29 02:10] LABS: URINE APPEARANCE SLIGHT-CLOUDY (CLEAR); URINE COLOR YELLOW (YELLOW)
[2016-09-29 02:14] LABS: URINE BACTERIA MOD (NEG); URINE EPITHELIAL CELLS 0 - 2 /hpf (0-5); URINE WBC 0 - 2 /hpf (0-6)
[2016-09-29 03:52] LABS: ADD MANUAL DIFF? NO
[2016-09-29 04:06] LABS: ALB/GLOB RATIO 1.1 (1.1-1.8); ALKALINE PHOSPHATASE 64 U/L (38-133); ALT/SGPT 31 U/L (7-56); AST/SGOT 30 U/L (15-39); BASO # 0.03 K/mm3 (0.0-2.0); BASO % 0.4 % (0.0-3.0); BILIRUBIN,TOTAL 0.8 mg/dL (0.2-1.3); BLOOD UREA NITROGEN 14 mg/dL (7-21); CALCIUM 9.6 mg/dL (8.4-10.5); CARBON DIOXIDE 26 mmol/L (21-33); CHLORIDE 104 mmol/L (95-110); EOS % 0.4 % (1.5-5.0); GFR AFRICAN-AMERICAN > 60; GLUCOSE,RANDOM 97 mg/dL (70-110); GRAN # 5.03 (1.4-6.5); LYMPH # 2.8 (1.2-3.4); LYMPH % 33.5 % (22.0-35.0); MEAN CELL VOLUME 84.8 fL (80.0-105.0); MEAN CORPUSCULAR HEMOGLOBIN 28.1 pg (25.0-35.0); MEAN CORPUSCULAR HGB CONC 33.2 g/dl (31.0-37.0); MEAN PLATELET VOLUME 9.9 fl (7.0-11.0); MONO # 0.5 (0.1-0.6); MONO % 6.4 % (1.0-6.0); PLATELET COUNT 266 10^3/uL (120.0-450.0); POTASSIUM 3.6 mmol/L (3.6-5.0); RED CELL DISTRIBUTION WIDTH 13.7 % (11.5-14.5); SODIUM 141 mmol/L (132-148); TOTAL PROTEIN 8.6 g/dL (5.8-8.3); WHITE BLOOD COUNT 8.5 10^3/ul (4.5-11.0)
[2016-09-29 04:11] LABS: GRAN % 59.3 % (50.0-68.0)
--- NOTE | 2016-09-29 07:09 | ED PDOC ---
Physical Exam Vital Signs Reviewed: Yes Vital Signs Temp Pulse Resp BP Pulse Ox 09/29/16 10:38 75 16 111/66 96 09/29/16 04:25 64 18 141/66 98 09/29/16 01:41 98.2 F 64 18 143/92 H 99 09/29/16 01:34 98.0 F 64 16 143/92 H 99 Temperature: Afebrile Blood Pressure: Hypertensive Pulse: Regular Respiratory Rate: Normal Medical Decision Making ED Course and Treatment: 09/29/16 07:09 Patient endorsed to me by Dr. Eason. Pending [facility] screener. Patient presented with abdominal pain after [id number] Motrin tablets. 09/29/16 11:32 Patient was evaluated by screener and not accepted to [facility]. As recommended by PES, patient signed out against medical advice - Lab Interpretations Lab Results: 09/29/16 03:35 09/29/16 03:35 Lab Results 09/29/16 03:35: Alcohol, Quantitative < 10 09/29/16 03:35: Salicylates < 1 L, Acetaminophen < 10.0 L 09/29/16 03:35: Sodium 141, Potassium 3.6, Chloride 104, Carbon Dioxide 26, Anion Gap 15, BUN 14, Creatinine 0.9, Est GFR ( Amer) > 60, Est GFR (Non- Af Amer) > 60, Random Glucose 97, Calcium 9.6, Total Bilirubin 0.8, AST 30, ALT 31, Alkaline Phosphatase 64, Total Creatine Kinase 133, Total Protein 8.6 H, Albumin 4.5, Globulin 4.1, Albumin/Globulin Ratio 1.1 09/29/16 03:35: WBC 8.5 D, RBC 4.48, Hgb 12.6, Hct 38.0, MCV 84.8, MCH 28.1, MCHC 33.2, RDW 13.7, Plt Count 266, MPV 9.9, Gran % 59.3, Lymph % (Auto) 33.5, [place] % (Auto) 6.4 H, Eos % (Auto) 0.4 L, Baso % (Auto) 0.4, Gran # 5.03, Lymph # 2.8, [place] # 0.5, Eos # 0.0, Baso # 0.03 09/29/16 01:37: Urine Opiates Screen Negative, Urine Methadone Screen Negative, Ur Barbiturates Screen Negative, Ur Phencyclidine Scrn Negative, Ur Amphetamines Screen Negative, U Benzodiazepines Scrn Negative, U Oth Cocaine Metabols Negative, U Cannabinoids Screen Positive H 09/29/16 01:37: Urine Color Yellow, Urine Appearance Slight-cloudy, Urine pH 6.0 , Ur Specific [place] >= 1.030, Urine Protein Trace H, Urine Glucose (UA) Negative, Urine Ketones Trace H, Urine Blood Small H, Urine Nitrate Negative, Urine Bilirubin Negative, Urine Urobilinogen 0.2, Ur Leukocyte Esterase Negative , Urine RBC 2 - 5, Urine WBC 0 - 2, Ur Epithelial Cells 0 - 2, Urine Bacteria Mod - RAD Interpretation Radiology Orders: 09/29/16 01:33 CHEST PORTABLE [RAD] Stat - Medication Orders Current Medication Orders: Discontinued Medications Sodium Chloride (Sodium Chloride 0.9%) 1,000 mls @ 1,000 mls/hr IV .Q1H STA Stop: 09/29/16 02:33 Last Admin: 09/29/16 03:45 Dose: 1,000 mls/hr Pantoprazole Sodium (Protonix Inj) 40 mg IVP STAT STA Stop: 09/29/16 01:35 Last Admin: 09/29/16 03:45 Dose: 40 mg Disposition/Present on Arrival - Present on Arrival Any Indicators Present on Arrival: No History of DVT/PE: No History of Uncontrolled Diabetes: No Urinary Catheter: No History of Decub. Ulcer: No History Surgical Site Infection Following: None - Disposition Diagnosis: Medication overdose Disposition: HOSPITALIZED Patient Problems: Current Active Problems Problem Status Onset Medication overdose Acute Condition: STABLE
--- NOTE | 2016-09-29 11:11 | CON ---
DATE: 09/29/2016 HISTORY OF PRESENT ILLNESS: The patient is a 41-year-old -[place] female with not long previ ous psychiatric history. The patient came to the hospital after overdose on Motrin 800 mg 8 pills. The patient reported to PS worker that she wanted to kill herself. The patient has multiple problems in her life, relationship problem, she was recently fired from her job. The patient was offered adm ission to the psychiatric inpatient unit. The patient declined that offer. Psychiatrist waste cotton cleaner amelia mosley practitioner and doctors recommended screening process and screening services are on the way. Maria T s typewriter ribbon winder briefly spoke to the patient. The patient was not willing to have interview. Has irritable affect, was not willing to provide information. The patient repeated that she does not want to stay in the hospital and she wants to go back home. No psychotic symptoms elicited. The patient is on 1 :1 observation right now. VITAL SIGNS: Stable, temperature 98.2, pulse 64, blood pressure 141/66, respirations 18, oxygen satu ration is 98. MEDICATIONS: Reviewed. LABORATORY DATA: Reviewed. Chemistry within normal limits. Toxicology positive for cannabis. PSYCHIATRIC HISTORY: Unknown. MENTAL STATUS EXAMINATION: The patient presented to be sleepy. Flat affect. Intermittent eye conta ct. Speech was underproductive, yes/no answers. Thought process seems to be goal directed. Thought content: The patient denied visual, auditory, or tactile hallucinations. Denied paranoid ideations . The patient denied thoughts of harming herself or others at the moment of the interview, but at th e same time, the patient overdosed on Motrin and said that she wanted to harm herself. Insight and j udgment are limited. Impulses are well controlled. IMPRESSION: Rule out adjustment disorder, rule out major depressive disorder. PLAN: The patient is on 1:1 observation. The patient [facility]. Patient declined that offer. The patient is waiting for [facility] and this patient will not accept at [place]. The patient needs to be [facility] medical advice. Should you have any questions, give me a call back. Thank you very much for letting me participate in care of your patient. Fernanda Ji MD cc: [id number] TT: 09/29/2016 11:10:51 Confirmation # [id number] Dictation # [id number]
[2016-09-29 13:07] VITALS: BP 123/72; PULSE 70; RESP 14; O2SAT 98
--- NOTE | 2016-09-29 15:20 | RAD ---
HISTORY: med clearence COMPARISON: No prior. FINDINGS: LUNGS: No active pulmonary disease. PLEURA: No significant pleural effusion identified, no pneumothorax apparent. CARDIOVASCULAR: Normal. OSSEOUS STRUCTURES: No significant abnormalities. VISUALIZED UPPER ABDOMEN: Normal. OTHER FINDINGS: None. IMPRESSION: No active disease.
--- NOTE | 2016-09-29 18:02 | CARD ---
APPROVED REPORT EKG Measurement Heart [id number] MI [id number] <Conclusion> Sinus bradycardia with sinus arrhythmia Otherwise normal ECG
== END 2016-09-29 13:05 | disposition left against medical advice (07) ==
LOC: ED 01:18
DX: T39.311A Poisoning by propionic acid derivatives, accidental (unintentional), initial encounter (principal); R10.13 Epigastric pain; Y92.009 Unspecified place in unspecified non-institutional (private) residence as the place of occurrence of the external cause; I10 Essential (primary) hypertension
CPT/HCPCS: 71010; 80053; 80320; 80324; 80329; 80345; 80346; 80349; 80353; 80358; 80361; 81001; 82550; 83992; 85025; 90791; 93005; 96374; 99285; C9113; J7040

== ENCOUNTER 2017-04-21 15:46 | Emergency (ER) | payer MEDICAID ==
[2017-04-21 15:46] VITALS: BMI 23.8
[2017-04-21 18:07] VITALS: BP 138/88; PULSE 88; RESP 16; TEMP 97.9; O2SAT 99
--- NOTE | 2017-04-21 18:56 | ED PDOC ---
Arrival/HPI - General Chief Complaint: Cough, Cold, Congestion Time Seen by Provider: 04/21/17 16:54 Historian: Patient - History of Present Illness Narrative History of Present Illness (Text): 04/21/17 18:51 41yo female present with intermittent one month history of nonproductive cough and fever. She reports Tmax of 102 last night. States she took OTC antitussive without relieve. She otherwise denies SOB, chest pain, sick contact, travel, vomiting, abdominal pain, any other complaint. Past Medical History - Provider Review Nursing Documentation Reviewed: Yes - Infectious Disease Hx of Infectious Diseases: None - Cardiac Hx Cardiac Disorders: No - Pulmonary Hx Respiratory Disorders: No - Neurological Hx Neurological Disorder: No - HEENT Hx HEENT Disorder: No - Renal Hx Renal Disorder: No - Endocrine/Metabolic Hx Endocrine Disorders: No - Hematological/Oncological Hx Anemia: Yes - Integumentary Hx Dermatological Disorder: No - Musculoskeletal/Rheumatological Hx Musculoskeletal Disorders: No - Gastrointestinal Hx Gastrointestinal Disorders: No - Genitourinary/Gynecological Hx Genitourinary Disorders: No - Psychiatric Hx Psychophysiologic Disorder: No Hx Substance Use: No - Surgical History Other/Comment: ECTOPIC PREG right - Anesthesia Hx Anesthesia: Yes Hx Anesthesia Reactions: No - Suicidal Assessment Feels Threatened In Home Enviroment: No Family/Social History - Physician Review Nursing Documentation Reviewed: Yes Family/Social History: Unknown Family HX Smoking Status: Never Smoked Hx Alcohol Use: Yes Hx Substance Use: No Allergies/Home Meds Allergies/Adverse Reactions: Allergies No Known Allergies Allergy (Verified 04/21/17 16:04) Review of Systems - Physician Review All systems were reviewed & negative as marked: Yes - Review of Systems Constitutional: Normal Eyes: Normal ENT: Normal Respiratory: Cough. absent: SOB, Sputum, Wheezing Cardiovascular: Normal Gastrointestinal: Normal Genitourinary Female: Normal Musculoskeletal: Normal Skin: Normal Neurological: Normal Endocrine: Normal Hemo/Lymphatic: Normal Psychiatric: Normal Physical Exam Vital Signs Reviewed: Yes Vital Signs Temp Pulse Resp BP Pulse Ox 04/21/17 18:04 97.9 F 88 16 138/88 99 04/21/17 16:07 97.8 F 66 17 142/91 H 100 Temperature: Afebrile Blood Pressure: Normal Pulse: Regular Respiratory Rate: Normal Appearance: Positive for: Well-Appearing, Non-Toxic, Comfortable Pain Distress: None Mental Status: Positive for: Alert and Oriented X 3 - Systems Exam Head: Present: Atraumatic, Normocephalic Pupils: Present: PERRL Extroacular Muscles: Present: EOMI Conjunctiva: Present: Normal Mouth: Present: Moist Mucous Membranes Neck: Present: Normal Range of Motion Respiratory/Chest: Present: Clear to Auscultation, Good Air Exchange. No: Respiratory Distress, Accessory Muscle Use, Wheezes, Decreased Breath Sounds, Rales, Retracting, Rhonchi Cardiovascular: Present: Regular Rate and Rhythm, Normal S1, S2. No: Murmurs Abdomen: Present: Normal Bowel Sounds. No: Tenderness, Distention, Peritoneal Signs Back: Present: Normal Inspection Upper Extremity: Present: Normal Inspection. No: Cyanosis, Edema Lower Extremity: Present: Normal Inspection. No: Edema Neurological: Present: GCS=15, CN II-XII Intact, Speech Normal Skin: Present: Warm, Dry, Normal Color. No: Rashes Psychiatric: Present: Alert, Oriented x 3, Normal Insight, Normal Concentration Medical Decision Making ED Course and Treatment: 04/21/17 18:58 Pt in ED for stated history. She was hemodynamically stable and in no distress. CXR NAD PT will be DC with Zpack, albuterol inhaler and Tessalon rx. Referred to her PMD. TRT ED for any new or worsening symptoms. - RAD Interpretation Radiology Orders: 04/21/17 16:54 CHEST TWO VIEWS (PA/LAT) [RAD] Stat Disposition/Present on Arrival - Present on Arrival Any Indicators Present on Arrival: No History of DVT/PE: No History of Uncontrolled Diabetes: No Urinary Catheter: No History of Decub. Ulcer: No History Surgical Site Infection Following: None - Disposition Have Diagnosis and Disposition been Completed?: Yes Diagnosis: Cough Disposition: HOME/ ROUTINE Disposition Time: 19:00 Patient Plan: Discharge Condition: STABLE Discharge Instructions (ExitCare): Acute Cough (ED) Additional Instructions: Follow up with your doctor Return to ED for any new or worsening symptoms Prescriptions: Albuterol HFA [Ventolin HFA 90 mcg/actuation (8 g)] 2 puff IH [id number] #1 puff Azithromycin [Zithromax] 250 mg PO DAILY #4 tab Benzonatate [Tessalon Perles] 100 mg PO TID #30 tab Referrals: [facility] [place] [Outside] - Follow up with primary
[2017-04-21] MEDS ORDERED: guaiFENesin 200 mg/10 ml Syrup UD PO STA (19:01)
--- NOTE | 2017-04-22 08:16 | RAD ---
HISTORY: cough COMPARISON: 09/29/2016 TECHNIQUE: Chest PA and lateral FINDINGS: LUNGS: No active pulmonary disease. PLEURA: No significant pleural effusion identified. No pneumothorax apparent. CARDIOVASCULAR: Normal. OSSEOUS STRUCTURES: No significant abnormalities. VISUALIZED UPPER ABDOMEN: Normal. OTHER FINDINGS: None. IMPRESSION: No active disease.
== END 2017-04-21 19:25 | disposition home or self-care (01) ==
LOC: ED 15:46
DX: R05 Cough (principal)

== ENCOUNTER 2017-05-11 16:57 | Emergency (ER) | payer MEDICAID, OTHER ==
[2017-05-11 16:57] VITALS: BMI 23.8
--- NOTE | 2017-05-11 17:05 | ED PDOC ---
Arrival/HPI - General Time Seen by Provider: 05/11/17 17:05 Historian: Patient - History of Present Illness Narrative History of Present Illness (Text): 05/11/17 17:05 42 y/o female, pmh including ovarian cyst, nkda, c/o headache/neck and lower back pain s/p fall x 2 days. Pt. stated that she was walking on the street, slipped, fall on the head and neck associated with neck and back pain, pain has not improved, no pain medication taken at home, no numbness or tingling, no urinary or bowel incontinence or retention, no urinary symptoms, not the worsening signs and symptoms of headache, no rash, no other medical or psychological complaints. Pt. is able to recall the whole event. Past Medical History - Provider Review Nursing Documentation Reviewed: Yes - Infectious Disease Hx of Infectious Diseases: None - Cardiac Hx Cardiac Disorders: No - Pulmonary Hx Respiratory Disorders: No - Neurological Hx Neurological Disorder: No - HEENT Hx HEENT Disorder: No - Renal Hx Renal Disorder: No - Endocrine/Metabolic Hx Endocrine Disorders: No - Hematological/Oncological Hx Anemia: Yes - Integumentary Hx Dermatological Disorder: No - Musculoskeletal/Rheumatological Hx Musculoskeletal Disorders: No - Gastrointestinal Hx Gastrointestinal Disorders: No - Genitourinary/Gynecological Hx Genitourinary Disorders: No - Psychiatric Hx Psychophysiologic Disorder: No Hx Substance Use: No - Surgical History Other/Comment: ECTOPIC PREG right - Anesthesia Hx Anesthesia: Yes Hx Anesthesia Reactions: No - Suicidal Assessment Feels Threatened In Home Enviroment: No Family/Social History - Physician Review Nursing Documentation Reviewed: Yes Family/Social History: Unknown Family HX Smoking Status: Never Smoked Hx Alcohol Use: Yes Hx Substance Use: No Allergies/Home Meds Allergies/Adverse Reactions: Allergies No Known Allergies Allergy (Verified 04/21/17 16:04) Review of Systems - Review of Systems Constitutional: absent: Fatigue, Fevers Eyes: absent: Vision Changes ENT: absent: Hearing Changes Respiratory: absent: SOB, Cough Cardiovascular: absent: Chest Pain Gastrointestinal: absent: Abdominal Pain, Diarrhea, Nausea, Vomiting Musculoskeletal: Back Pain, Neck Pain. absent: Arthralgias, Joint Swelling, Myalgias Skin: absent: Rash, Pruritis Neurological: Headache. absent: Dizziness, Focal Weakness, Gait Changes, Speech Changes, Facial Droop Psychiatric: absent: Anxiety, Depression, Suicidal Ideation Physical Exam Vital Signs Reviewed: Yes Vital Signs Temp Pulse Resp BP Pulse Ox 05/11/17 17:12 97.4 F L 67 18 118/70 96 Temperature: Afebrile Blood Pressure: Normal Pulse: Regular Respiratory Rate: Normal Appearance: Positive for: Well-Appearing, Non-Toxic Pain Distress: Moderate Mental Status: Positive for: Alert and Oriented X 3 - Systems Exam Head: Present: Atraumatic, Normocephalic. No: Tenderness, Contusion, Swelling, Ecchymosis, Abrasion, Laceration, Other Pupils: Present: PERRL Extroacular Muscles: Present: EOMI Conjunctiva: Present: Normal Ears: Present: NORMAL TM, Normal Canal. No: Erythema Mouth: Present: Moist Mucous Membranes Pharnyx: Present: Normal. No: ERYTHEMA, EXUDATE, TONSILS ENLARGED, Peritonsilar Swelling, Uvular Deviation Nose (External): Present: Atraumatic. No: Abrasion, Contusion Nose (Internal): Present: Normal Inspection, No Active Bleeding. No: Rhinorrhea , Septal Hematoma, Epistaxis Neck: Present: Normal Range of Motion, Paraspinal Tenderness, Trachea Midline. No: Meningeal Signs, MIDLINE TENDERNESS, Lymphadenopathy Respiratory/Chest: Present: Clear to Auscultation, Good Air Exchange. No: Respiratory Distress, Accessory Muscle Use, Decreased Breath Sounds, Rales, Retracting, Rhonchi, Tachypneic, Tender to Palpation Cardiovascular: Present: Regular Rate and Rhythm, Normal S1, S2. No: Murmurs Abdomen: Present: Normal Bowel Sounds. No: Tenderness, Distention, Peritoneal Signs, Rebound, Guarding Back: Present: Normal Inspection, Paraspinal Tenderness (Thoracic to LS spine: + ttp on the rt. paraspinal muscle region, no midline tenderness or step off, no rash, FROM without limitation, sensation intact, motor 5/5, no saddling gait. ) . No: Midline Tenderness Upper Extremity: Present: Normal Inspection. No: Cyanosis, Edema Lower Extremity: Present: Normal Inspection. No: Edema Neurological: Present: GCS=15, Speech Normal, Motor Func Grossly Intact, Gait Normal, Memory Normal Skin: Present: Warm, Dry, Normal Color. No: Rashes Psychiatric: Present: Alert, Oriented x 3, Normal Insight, Normal Concentration Medical Decision Making ED Course and Treatment: 05/11/17 17:34 -CT head/cervical/Lumbar spine -Percocet -Observe and reassess 05/11/17 20:18 -CT Head: No acute intracranial abnormalities. No significant findings to account for the clinical presentation. -CT Cervical: No fracture. Groundglass opacities, nonspecific. DDX: Pneumonia, pulmonary edema, interstitial lung disease, pneumonitis, contusion. Clinical correlation and follow up are recommended. (Pt. has no coughing or fever, no URI symptoms, no cardiopulmonary symptoms or complaints, no rib or chest pain). I discussed with the patient about the CT cervical lung findings and advised outpatient follow up. -Cervical xray: degenerative changes -CT Lumbar: No fracture. -CT cervical result discussed with Dr. Goodwin, suggest no acute intervention needed and no antibiotic needed as the patient is asymptomatic. -Pt. feels much better, request more pain medication prior to be discharge, toradol and valium ordered. -Discharge home with naproxen, flexeril, bed rest, follow up with your own pmd and orthopedic within 2 days regarding about the CT result findings as well, return to the ER for any new or worsening signs or symptoms. - RAD Interpretation Radiology Orders: 05/11/17 17:30 HEAD W/O CONTRAST [CT] Stat CERVICAL SPINE >18YR W/OBLIQUE [RAD] Stat 05/11/17 17:38 LUMBAR SPINE W/O CONTRAST [CT] Stat 05/11/17 18:09 CERVICAL SPINE W/O CONTRAST [CT] Stat CT Head: PROCEDURE: CT HEAD WITHOUT CONTRAST. HISTORY: fall x 2 days, c/o pain COMPARISON: And right all TECHNIQUE: Axial computed tomography images were obtained through the head/brain without intravenous contrast. Radiation dose: Total exam DLP = 1279.27 mGy-cm. This CT exam was performed using one or more of the following dose reduction techniques: Automated exposure control, adjustment of the mA and/or kV according to patient size, and/or use of iterative reconstruction technique. FINDINGS: HEMORRHAGE: No intracranial hemorrhage. BRAIN: No mass effect or edema. No atrophy or chronic microvascular ischemic changes. VENTRICLES: Unremarkable. No hydrocephalus. CALVARIUM: Unremarkable. PARANASAL SINUSES: Unremarkable as visualized. No significant inflammatory changes. MASTOID AIR CELLS: Unremarkable as visualized. No inflammatory changes. OTHER FINDINGS: None. IMPRESSION: No acute intracranial abnormalities. No significant findings to account for the clinical presentation. -------- CT Cervical: FINDINGS: Vertebrae: No acute fracture. Incomplete closure of C1 ring, normal variant. Reversal of cervical lordosis. 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 No significant spinal stenosis. Soft tissues: Unremarkable. Lung apices: Scattered patchy groundglass opacities. IMPRESSION: 1. No fracture. 2. Groundglass opacities, nonspecific. DDX: Pneumonia, pulmonary edema, interstitial lung disease, pneumonitis, contusion. Clinical correlation and follow up are recommended. 3. Incidental/non-acute findings are described above. Thank you for allowing us to participate in the care of your patient. Dictated and Authenticated by: Graeme Martinez MD 05/11/2017 7:59 PM Eastern Time ([email or web address]) ------- CT LS spine: COMPARISON: No relevant prior studies available. FINDINGS: Vertebrae: No acute fracture. Discs/spinal canal/neural foramina: No significant spinal canal stenosis. Soft tissues: Unremarkable. IMPRESSION: 1. No fracture. Thank you for allowing us to participate in the care of your patient. Dictated and Authenticated by: Graeme Martinez MD 05/11/2017 8:02 PM Eastern Time ([email or web address]) Cervical xray: PROCEDURE: Cervical Spine Radiographs. HISTORY: Pain. COMPARISON: None. FINDINGS: BONES: Alignment maintained. No fracture. Dens Intact. There is mild reversal of the normal lordosis which could be due to degenerative changes DISC SPACES: Normal. SOFT TISSUES: Normal. No prevertebral soft tissue swelling. OTHER FINDINGS: None. IMPRESSION: Mild reversal of the normal lordosis which could be due to degenerative changes. Mild degenerative changes associated with multilevel small osteophyte formation more prominent at C5-C6. 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 No Sleep Is patient sleeping during reassessment? No Presence of Pain Presence of Pain Yes - PA / TMD TEACHER ASSISTANT / Resident Statement MD/DO has reviewed & agrees with the documentation as recorded. Disposition/Present on Arrival - Present on Arrival Any Indicators Present on Arrival: No History of DVT/PE: No History of Uncontrolled Diabetes: No Urinary Catheter: No History of Decub. Ulcer: No History Surgical Site Infection Following: None - Disposition Have Diagnosis and Disposition been Completed?: Yes Diagnosis: Accidental fall, Neck pain, Low back pain, Myalgia, Abnormal CT scan Disposition: HOME/ ROUTINE Disposition Time: 17:34 Patient Plan: Discharge Patient Problems: Current Active Problems Problem Status Onset Abnormal CT scan Acute Accidental fall Acute Low back pain Acute Myalgia Acute Neck pain Acute Condition: IMPROVED Additional Instructions: -Discharge home with naproxen, flexeril, bed rest, follow up with your own pmd and orthopedic within 2 days regarding about the CT result findings as well, return to the ER for any new or worsening signs or symptoms. Prescriptions: Cyclobenzaprine [Cyclobenzaprine HCl] 10 mg PO TID PRN #21 tab PRN Reason: Other Naproxen 500 mg PO BID PRN #20 tab PRN Reason: Other Referrals: Socorro Guerra, [Primary Care Provider] - Follow up with primary Christopher Hilliard III, MD [Medical Doctor] - Follow up with primary Jose Morton MD [Staff Provider] - Follow up with primary Forms: WORK NOTE
[2017-05-11 17:18] VITALS: RESP 18; TEMP 97.4
[2017-05-11] MEDS ORDERED: Oxycodone/Acetaminophen 5/325 mg Tab PO STA (17:30)
--- NOTE | 2017-05-11 18:26 | CT ---
PROCEDURE: CT HEAD WITHOUT CONTRAST. HISTORY: fall x 2 days, c/o pain COMPARISON: And right all TECHNIQUE: Axial computed tomography images were obtained through the head/brain without intravenous contrast. Radiation dose: Total exam DLP = 1279.27 mGy-cm. This CT exam was performed using one or more of the following dose reduction techniques: Automated exposure control, adjustment of the mA and/or kV according to patient size, and/or use of iterative reconstruction technique. FINDINGS: HEMORRHAGE: No intracranial hemorrhage. BRAIN: No mass effect or edema. No atrophy or chronic microvascular ischemic changes. VENTRICLES: Unremarkable. No hydrocephalus. CALVARIUM: Unremarkable. PARANASAL SINUSES: Unremarkable as visualized. No significant inflammatory changes. MASTOID AIR CELLS: Unremarkable as visualized. No inflammatory changes. OTHER FINDINGS: None. IMPRESSION: No acute intracranial abnormalities. No significant findings to account for the clinical presentation.
--- NOTE | 2017-05-11 18:43 | RAD ---
PROCEDURE: Cervical Spine Radiographs. HISTORY: Pain. COMPARISON: None. FINDINGS: BONES: Alignment maintained. No fracture. Dens Intact. There is mild reversal of the normal lordosis which could be due to degenerative changes DISC SPACES: Normal. SOFT TISSUES: Normal. No prevertebral soft tissue swelling. OTHER FINDINGS: None. IMPRESSION: Mild reversal of the normal lordosis which could be due to degenerative changes. Mild degenerative changes associated with multilevel small osteophyte formation more prominent at C5-C6.
--- NOTE | 2017-05-11 19:59 | CT ---
EXAM: CT Cervical Spine Without Intravenous Contrast CLINICAL HISTORY: 42 years old, female; Pain; Neck pain; Additional info: Neck pain S/P fall TECHNIQUE: Axial computed tomography images of the cervical spine without intravenous contrast. All CT scans at this facility use one or more dose reduction techniques, viz.: automated exposure control; ma/kV adjustment per patient size (including targeted exams where dose is matched to indication; i.e. head); or iterative reconstruction technique. Coronal and sagittal reformatted images were created and reviewed. COMPARISON: No relevant prior studies available. FINDINGS: Vertebrae: No acute fracture. Incomplete closure of C1 ring, normal variant. Reversal of cervical lordosis. 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 No significant spinal stenosis. Soft tissues: Unremarkable. Lung apices: Scattered patchy groundglass opacities. IMPRESSION: 1. No fracture. 2. Groundglass opacities, nonspecific. DDX: Pneumonia, pulmonary edema, interstitial lung disease, pneumonitis, contusion. Clinical correlation and follow up are recommended. 3. Incidental/non-acute findings are described above.
--- NOTE | 2017-05-11 20:02 | CT ---
EXAM: CT Lumbar Spine Without Intravenous Contrast CLINICAL HISTORY: 42 years old, female; Pain; Low back pain; Additional info: Lower back pain S/P fall TECHNIQUE: Axial computed tomography images of the lumbar spine without intravenous contrast. All CT scans at this facility use one or more dose reduction techniques, viz.: automated exposure control; ma/kV adjustment per patient size (including targeted exams where dose is matched to indication; i.e. head); or iterative reconstruction technique. Coronal and sagittal reformatted images were created and reviewed. COMPARISON: No relevant prior studies available. FINDINGS: Vertebrae: No acute fracture. Discs/spinal canal/neural foramina: No significant spinal canal stenosis. Soft tissues: Unremarkable. IMPRESSION: 1. No fracture.
[2017-05-11 20:43] VITALS: BP 118/79; PULSE 78; O2SAT 98
== END 2017-05-11 20:43 | disposition home or self-care (01) ==
LOC: ED 16:57
DX: M79.1 Myalgia (principal); M54.5 Low back pain; M54.2 Cervicalgia; R94.8 Abnormal results of function studies of other organs and systems